=== PATIENT | female | born 1950 | race Caucasian/White ===

== ENCOUNTER 2016-12-30 20:07 | Emergency (ER) | payer MEDICARE, BC ==
[~2016-12-30] VITALS: Ht 160 cm; Wt 56.8 kg
[2016-12-30 20:21] VITALS: TEMP 99.5
[2016-12-30] MEDS ORDERED: NORCO 325 MG-7.1 TAB PO (20:25)
[2016-12-30] MEDS ORDERED: GLUCOPHAGE1000 MG PO (20:26)
[2016-12-30] MEDS ORDERED: AMOXICILLIN 50500 MG PO (21:40)
[2016-12-30 22:13] VITALS: BP 128/72; PULSE 63
== END 2016-12-30 22:13 | disposition home or self-care (01) ==
LOC: COL.ER 20:07
DX: K04.7 Periapical abscess without sinus (principal); E11.9 Type 2 diabetes mellitus without complications; Z79.84 Long term (current) use of oral hypoglycemic drugs
CPT/HCPCS: J1885; J2270